=== PATIENT | male | born 1960 | race Caucasian/White ===

== ENCOUNTER 2020-03-19 00:32 | Outpatient (CLI) | payer BC, SELFPAY ==
[2020-03-19 16:40] LABS: SARS-CoV-2 RNA PCR Negative
== END 2020-03-19 00:33 | disposition home or self-care (01) ==
LOC: ANHCOVIDDT 00:32
PROVIDERS: PCP Emergency Medicine; Visit Provider Orthopaedic Surgery
DX: Z01.812 Encounter for preprocedural laboratory examination (principal); Z20.828 Contact with and (suspected) exposure to other viral communicable diseases
CPT/HCPCS: 87635; C9803; U0003

== ENCOUNTER 2020-03-21 17:53 | Inpatient (IN) | payer BC, SELFPAY ==
[2020-02-07 11:05] VITALS: BMI 33.9
--- NOTE | 2020-02-13 11:47 | P.HP_ITS ---
H&P: HPI History of Present Illness Date/Time: 02/13/20 11:47 Chief complaint: Right Shouldler Rotator Cuff Tear Narrative: Ritchie Lyons is a 59 year old male who presents with an ongoing history of right shoulder pain. Patient has pain with overhead type motion can not do any heavy repetitive pushing or pulling or lift anything heavy. Patient has aching and pain limits his daily activities this pain radiates into his upper arm worse with activity somewhat relieved by rest. He has dealt with this pain for several months that is not improving with time. He had cortisone therapy and anti-inflammatories as symptoms continue. An MRI scan was performed that shows a partial tear of the supraspinatus tendon. The bicipital and labral complexes are intact. There is a small subacromial, subdeltoid fluid collection. There are hypertrophic degenerative changes of the AC joint which may cause impingement type symptoms. Remainder of the rotator cuff tendons appeared to be well preserved with no retraction. At this point the patient has failed conservative measures as discussed further treatment options in detail with Dr. eG he would like to proceed with surgical intervention. Review of Systems Review of Systems: All systems reviewed & are unremarkable except as noted in HPI and below PMFSH Social History Social History Smoking status: Never smoker Spiritual care concerns: No Meds Home Medications and Allergies Home Medications Medication Instructions Recorded Confirmed Type aspirin [Aspirin Low Dose] 81 mg PO DAILY 02/07/20 02/07/20 History esomeprazole magnesium [Nexium] 20 mg PO EVERY OTHER DAY 02/07/20 02/07/20 History omega 4-kiu-bjt-fish oil [[place]-3] 1 cap PO DAILY 02/07/20 02/07/20 History Allergies Allergy/AdvReac Type Severity Reaction Status Date / Time No Known Allergies Allergy Mild Unverified 02/07/20 11:06 Exam Narrative: Exam Narrative: The patient is well-developed well-nourished male in no acute distress. He is alert and oriented x3. Normal mood and affect. HEENT exam within normal limits. Heart regular rate rhythm. Lungs clear auscultation. Abdomen benign. Extremities showed the patient's right shoulder to be painful with manipulation range of motion. He has pain with overhead type motion with a positive impingement sign. He has full active and passive motion pain with extremes of motion. He has painful giving way with rotator cuff strength testing, rotator cuff strength testing does reproduce his symptoms. Patient has full painless neck motion shoulder joint is otherwise stable. Neurovascular is intact. Skin is intact. Central nervous system exam within normal limits. MRI scan is as above. Assessment and Plan Additional Plan By MRI and exam the patient is noted have impingement with rotator cuff tendinitis AC joint arthrosis and partial-thickness tear of the supraspinatus tendon right shoulder. The patient has discussed risks benefits limitations and alternatives of surgery in great detail with Dr. Ge he is now to proceed with a right shoulder arthroscopy acromioplasty open distal clavicle excision and possible debridement of the rotator cuff tendon versus repair, proceed as indicated. The patient is scheduled undergo surgery 02/22/2028 [facility] with Dr. Ge. The patient voiced understanding and agrees with the above plan.
--- NOTE | 2020-03-13 12:22 | PC.NURSE ---
PT STATES NO CHANGE IN HEALTH SINCE PREOP INTERVIEW CONDUCTED 02/07/20. MEDS/HX REVIEWED. UPDATED PREOP INSTRUCTIONS REVIEWED.
--- NOTE | 2020-03-16 14:16 | PM.IMHP ---
H&P: HPI History of Present Illness Date/Time: 03/16/20 14:16 Chief complaint: Right Shouldler Rotator Cuff Tear Narrative: Ritchie Lyons is a 59 year old male Who presents with right shoulder pain chronic in nature. Patient has pain with overhead type motion worse with activity somewhat relieved by rest. The pain radiates from her shoulder into his upper arm, the patient reports painful giving way with repetitive or heavy activity. The patient states it has been a slow gradual onset and got to the point where it limits his daily activities. The patient was evaluated and treated with cortisone therapy and anti-inflammatories without significant relief. An MRI scan was done that shows a partial tear of the supraspinatus tendon near the insertion suggesting an interstitial tear, this extends to the articular surface no retraction is noted the rest the rotator cuff tendons are well preserved. The bicipital tendon and labral complex is also well preserved. There is mild hypertrophic degenerative changes seen at the acromioclavicular joint with impingement and a small subacromial subdeltoid fluid collection is noted. At this point the patient is discussed treatment options in detail with Dr. Ge he has failed conservative measures he would like to proceed with surgical intervention. Review of Systems Review of Systems: All systems reviewed & are unremarkable except as noted in HPI and below PMFSH Social History Social History Smoking status: Never smoker Spiritual care concerns: No Meds Home Medications and Allergies Home Medications Medication Instructions Recorded Confirmed Type aspirin [Aspirin Low Dose] 81 mg PO DAILY 02/07/20 03/13/20 History esomeprazole magnesium [Nexium] 20 mg PO EVERY OTHER DAY 02/07/20 03/13/20 History omega 4-jdm-dac-fish oil [[place]-3] 1 cap PO DAILY 02/07/20 03/13/20 History Allergies Allergy/AdvReac Type Severity Reaction Status Date / Time No Known Allergies Allergy Mild Unverified 02/07/20 11:06 Exam Narrative: Exam Narrative: The patient is a well-developed well-nourished male no acute distress he is alert and oriented x3. Normal mood and affect. HEENT exam within normal limits heart regular rate rhythm lungs clear auscultation abdomen benign bowel sounds positive four quads. Extremities showed the patient's right shoulder to be painful with manipulation range of motion. He has pain with overhead type motion with a positive impingement sign rotator cuff strength testing did reproduce his symptoms as well. He has painful giving way with rotator cuff strength testing weakness with external rotation in abduction is noted. He has full passive and active motion. He has full painless neck motion shoulder joint is otherwise stable. Neurovascular is intact. Central nervous system exam within normal limits. Assessment and Plan Additional Plan By MRI exam the patient is noted to have impingement with rotator cuff tendinitis AC joint arthrosis and partial-thickness tear of the rotator cuff tendon. This is all in the right shoulder. The patient has discussed risks benefits limitations and alternatives of surgery in great detail with Dr. Ge he has noted proceed with a right shoulder arthroscopy acromioplasty open distal clavicle excision with rotator cuff tendon debridement versus repair proceed as indicated patient is scheduled undergo surgery 03/21/[address] [facility] [address] Ge. The patient voiced understanding and agrees with above plan.
--- NOTE | 2020-03-20 17:46 | P.PNAN_ITS ---
Larisa - Rebeka Pre Procedure Procedure: Operation Date: 03/21/20 07:30 Proposed Procedures p Right Shoulder Arthroscopy, Acromioplasty, Open Distal Clavicle Excision, Open Rotator Cuff Repair, Proceed As Indicated - Ravi Ge MD Date/Time: 03/20/20 17:46 Pre Op Diagnosis: Right Shouldler Rotator Cuff Tear Patient Data Age: 59 Gender: M Height: 6 ft Weight: 113.4 kg Allergies Allergy/AdvReac Type Severity Reaction Status Date / Time No Known Allergies Allergy Mild Unverified 02/07/20 11:06 Home Medications Medication Instructions Recorded Confirmed Type aspirin [Aspirin Low Dose] 81 mg PO DAILY 02/07/20 03/13/20 History esomeprazole magnesium [Nexium] 20 mg PO EVERY OTHER DAY 02/07/20 03/13/20 His tory omega 7-lyu-hga-fish oil [[place]-3] 1 cap PO DAILY 02/07/20 03/13/20 History Patient hx anesthesia problems: none Family hx anesthesia problems: none PMFSH Past Medical History Medical History (Updated 03/20/20 @ 17:48 by Xavi Thomson CRNA) GERD (gastroesophageal reflux disease) Obesity Pre-hypertension Surgical History Surgical History S/P excision of lipoma S/P lumbar fusion Social History Social History Smoking status: Never smoker Spiritual care concerns: No Exam Day of Procedure 03/20/20 17:46
[2020-03-21] VITALS (29 sets, daily range): BP systolic 99–164; BP diastolic 68–102; PULSE 94–124; RESP 16–28; TEMP 36.2–37.1; O2SAT 88–95
--- NOTE | ~2020-03-21 | CT_ITS ---
EXAMINATION: CTA chest PE protocol DATE: 03/23/2020 11:42 INDICATION: Postoperative hypoxia and tachycardia. TECHNIQUE: Computed tomography (CT) pulmonary angiogram of the chest was performed with 100 mL Omnipa que-350 intravenous contrast. Additional 3D reconstructions utilizing coronal maximum intensity proje ction (MIP) were performed. Automated exposure control and iterative reconstruction technique were em ployed. The dose-length product was 1014.63 mGy-cm. COMPARISON: None FINDINGS: Minimal respiratory motion. Adequate but suboptimal contrast opacification of the pulmonary arteries along with mild streak artifact from dense contrast in the superior vena cava and right atrium which mildly decreases sensitivity for pulmonary embolism. No pulmonary embolism identified. Atelectasis al marlen the medial right lower lobe and at the posterior segment of the right upper lobe. No pneumonia, p ulmonary edema or pleural effusion. 4-5 mm subpleural nodule at the lingula. Heart size is normal. No pericardial effusion. Thoracic aorta is normal in caliber with no dissection. No pathologically enla rged thoracic lymphadenopathy. Visualized upper abdomen is unremarkable. Likely physiologic chronic a ppearing mild anterior wedging at T12. IMPRESSION: 1. No evident pulmonary embolism. Sensitivity mildly decreased by adequate but suboptimal contrast op acification of the pulmonary arteries. 2. Atelectasis in the right upper and left lower lobes. 3. Indeterminate 4-5 mm nodule at the lingula. If the patient is low risk for lung cancer, no follow- up is needed. If the patient is high risk (i.e., history of smoking or asbestos or significant radiat ion exposure), optional follow-up low-dose noncontrast chest CT could be considered at 12 months. Reviewed, dictated and finalized at location A. IMPRESSION: 1. No evident pulmonary embolism. Sensitivity mildly decreased by adequate but suboptimal contrast opacification of the pulmonary arteries. 2. Atelectasis in the right upper and left lower lobes. 3. Indeterminate 4-5 mm nodule at the lingula. If the patient is low risk for l usman cancer, no follow-up is needed. If the patient is high risk (i.e., history of smoking or asbestos or significant radiation exposure), optional follow-up l ow-dose noncontrast chest CT could be considered at 12 months.
--- NOTE | ~2020-03-21 | XR_ITS ---
EXAMINATION: XR chest 1V portable EXAM DATE: 03/21/2020 12:02 INDICATION: Decreased breath sounds. TECHNIQUE: Portable AP frontal chest x-ray was obtained. There is no prior study for comparison. FINDINGS: There is linear left basilar atelectasis. Suspect larger amount of right infrahilar airspac e disease, could be atelectasis, pneumonia, or less likely chronic process. No pneumothorax or pleura l effusion. Cardiomediastinal silhouette is normal. There are mild bony degenerative changes. IMPRESSION: 1. Probable right infrahilar subsegmental atelectasis, pneumonia or less likely chronic process. 2. Left basilar linear atelectasis. Reviewed, dictated and finalized at location A. IMPRESSION: 1. Probable right infrahilar subsegmental atelectasis, pneumonia or less likel y chronic process. 2. Left basilar linear atelectasis.
[2020-03-21] MEDS: LACTATED RINGERS 1,000 ML 30 ML IV CONT ×2 (07:08→09:43)
[2020-03-21] MEDS: ACETAMINOPHEN 500 MG TABLET 1000 MG PO (07:08)
[2020-03-21] MEDS: KETOROLAC 15 MG/ML VIAL (*BKC) IV PUSH (07:09)
--- NOTE | 2020-03-21 07:10 | WPDHPUPDATE1 ---
History and Physical Update Update Date/Time: 03/21/20 07:10 History and Physical has been reviewed, including an updated exam of the patient. There are NO changes in the patient's condition. Risks, benefits, and alternatives have been discussed and questions answered. Patient agrees to proceed with procedure.
[2020-03-21] MEDS: ceFAZolin 2 GM/D5W 50 ML 2 GM/50 ML BAG IVPB (07:31)
--- NOTE | 2020-03-21 07:32 | WPDANESPNB ---
Anes - Peripheral Nerve Block Date/Time: 03/21/20 07:32 I have discussed with the patient/family/POA the placement of a peripheral nerve block for post-operative pain management, including associated risks, benefits, complications, and side effects. Alternative methods of post-operative analgesia were detailed. Questions were solicited and answers provided to the satisfaction of the patient/family/POA. Time-Out: A pre-procedural Time-Out was completed immediately before starting the procedure and confirmed: Patient Identification, Site, Procedure, Patient Position and the Availability of Requisite Equipment. Clinical Indications: Acute post-operative pain management requested by the operative surgeon. Nerve Block Insertion Note Anes-nerve block: interscalene right Patient position: supine Skin prep: chlorhexidine Needle: 22 gauge, stimulating, insulated echogenic needle. Needle length: 50 mm Technique: ultrasound Injectate: bupivacaine 0.5% with epi 5 mcg/ml (30cc) Observations: tolerated well Complications: none Procedure start time:: 724 Procedure end time:: 727
--- NOTE | 2020-03-21 07:55 | WPDANESEFPP ---
Anes - Eval Final PreProcedure Day of Procedure 03/21/20 07:55 Patient weight: obese Heart: regular rate and rhythm Lungs: clear to auscultation and normal air movement Airway: Mallampati scale class III Neurological: alert and oriented Last oral intake: >/= 8 hours ASA classification: III Emergent: no Anesthetic plan: proceed Anesthesia type and monitoring: general ETT and standard monitoring Informed Consent: The patient's anesthetic plan and its attendant risks and benefits were discussed with the patient/family/POA. Questions were solicited and answers provided to the satisfaction of the patient/family/POA.
[2020-03-21] MEDS: LIDO 1%/EPINEPHRINE 1:100,000 20 ML VIAL INFILTRATE (08:27)
--- NOTE | 2020-03-21 08:57 | PM.PROC ---
Procedure Note - Detailed Date of procedure: 03/21/20 Pre-op diagnosis: Right Shouldler Rotator Cuff Tear Post-op diagnosis: same Procedure performed: [side] carpal tunnel release Description of procedure: After sterile prep and drape, I injected the area of intended incision with 10ml of 1% lidocaine. A longitudinal incision was made in line with the ulnar boarder of the third finger. Disection carried down to the fascia, the fascia split and the carpal ligament identified. The carpal ligament was released and the flexor retinaculum was released as well. The nerve was noted to be red purple in color and in continuity. The wound was irrigated, hemostatis was obtained and closed with 3-0 prolene. Anesthesia: MAC Surgeon: Ravi Ge MD Estimated blood loss (mL): 5 Drains: No Packing: No Pathology: none sent Complications: No immediate complications Condition: stable Disposition: same day
--- NOTE | 2020-03-21 08:58 | P.OP_ITS ---
Procedure Note - Detailed Date of procedure: 03/21/20 Pre-op diagnosis: Right Shouldler Rotator Cuff Tear Post-op diagnosis: same Anesthesia: GETA Surgeon: Ravi Ge MD Patient brought to OR #7. Anesthetic given. Placed in beach chair position. Standard portals posterior and laterally with an anterior portal used. Diagnostic arthroscopy performed. Rotator cuff tear seen. Acromioplasty performed. Incision opened and carried to the A/C joint. 3mm distal clavicle removed. deltoid split distally for 2 cm. Acromioplasty rasped. Rotator cuff tear found (nickel sized) and repaired with multiple #2 ethibond sutures. Deltoid repaired to itself, acromion and trapezius. Wound closed with 2-0 viryl and savana. Procedure was very difficult because of the patient's size. Marine Equipment Design Engineer: Jason Rousseau Estimated blood loss (mL): 50 Drains: No Packing: No Pathology: none sent Complications: No immediate complications Condition: stable Disposition: PACU
--- NOTE | 2020-03-21 10:08 | SUR.PHASEI ---
0943; PT ARRIVED INTO PACU PER STRETCHER. 02 10L MASK. HOB ELEVATED 30 DEGREES. FACE HANNAH IN COLOR. RESP EVEN UNLABORED. SAO2 89-92%,
--- NOTE | 2020-03-21 10:18 | SUR.PHASEI ---
1008; PT DROWSY, SAO2 85-90% ON O2 10L MASK. RESP EVEN UNLABORED. SLIGHT DIMINISHED BREATH SOUNDS TO RLL. CLEAR BILAT. DR LIVE NOTIFIED. WHEN PT MORE AWAKE, START INCENTIVE SPIROMETER.
--- NOTE | 2020-03-21 10:38 | SUR.PHASEI ---
SPOKE TO DR QUIGLEY. MAY USE SHOULDER SCOPE CANNED TEXT FOR DISCHARGE INSTRUCTIONS.
--- NOTE | 2020-03-21 10:54 | SUR.PHASEI ---
1050; PT MORE AWAKE NOW. WANTING TO SIT UPRIGHT. RESP EVEN UNLABORED. P,W,D. FACE NO LONGER HANNAH IN COLOR. DENIES PAIN OR NAUSEA. PT GIVEN ICE CHIPS SPARINGLY
--- NOTE | 2020-03-21 11:40 | SUR.PHASEI ---
1130; PT AWAKE AND ALERT. EATING A FEW ICE CHIPS. REMAINS UPRIGHT. DENIES PAIN OR SOB. RESP EVEN UNLABORED. P,W,D. SAO2 RANGES 86%-90% ON 10L MASK. PT KEEPS STATING I FEEL FINE
--- NOTE | 2020-03-21 11:56 | SUR.PHASEI ---
1150; CALLED DR LIVE. NOTIFIED OF CONTINUING LOW SATS. AND I.S. OF 700-900. 1152; DR LIVE AT BEDSIDE ASSESSING PT. STAT CXR ORDERED.
--- NOTE | 2020-03-21 12:16 | SUR.PHASEI ---
1210; PT AWAKE AND ALERT. STATES I'M FEELING GOOD. READY TO GO HOME SAO2 REMAINS LOW. PT WANTING TO SIT UP IN CHAIR. RECLINER BROUGHT INTO PACU. PT UP TO RECLINER. GAIT STEADY. TRANSFERRED SELF WITH O2 ON.
--- NOTE | 2020-03-21 12:26 | SUR.PHASEI ---
PT AWAKE AND ALERT. TALKATIVE. REMAINS ON O2 10L MASK. SAO2 DECREASED TO 8L FOR TRIAL. PT REMAINS IN RECLINER. DRINKING WHITE SODA
--- NOTE | 2020-03-21 12:42 | SUR.PHASEI ---
SPOKE TO DR LIVE. HE IS GOING TO CALL DR QUIGLEY AND GIVE AN UPDATE
--- NOTE | 2020-03-21 12:50 | SUR.PHASEI ---
1247; DR LIVE AT BEDSIDE SPEAKING TO PT. HE SAYS DR QUIGLEY WANTS PT ADMITTED UNDER HOSPITALIST. JAMESON KELLY RN NOTIFIED TO START PROCESS.
--- NOTE | 2020-03-21 13:03 | SUR.PHASEI ---
JAMESON CEDEÑO SPOKE TO DR QUIGLEY AND DR GREY. PT TO BE ADMITTED
--- NOTE | 2020-03-21 13:07 | SUR.PHASEI ---
TRIAL ON O2 6L SIMPLE MASK
--- NOTE | 2020-03-21 13:32 | SUR.PHASEI ---
REPORT GIVEN TO STEVE CEDEÑO
--- NOTE | 2020-03-21 14:19 | SUR.PHASEI ---
CARE RESUMED OF PT
--- NOTE | 2020-03-21 14:59 | SUR.PHASEI ---
3291; SPOKE TO NURSING TRACK BROOM OPERATOR RAJ CEDEÑO. NEEDING ORDERS. DR GREY DID NOT CALL BACK. SHE SUGGESTED CALLING HOSPITALIST ANG LEACH. CALLED. NO ANSWER.
--- NOTE | 2020-03-21 15:43 | SUR.PHASEI ---
1515; CALLED HANY [facility] NP, SHE STATED DR GREY WAS NOT ACCEPTING THIS PATIENT DUE TO HYPOXIA. 1530; SPOKE TO JAMESON CEDEÑO, BETZY SURGERY DIRECTOR, RAJ CEDEÑOCOMPUTER AIDE. 1535; JAMESON CEDEÑO SPOKE TO DR QUIGLEY REGARDING ADMISSION ORDERS. HE SAID THATS FINE DO WHATEVER YOU WANT . 1540; STAT ABG ORDERED PER HOSPITALIST REQUEST. 1545; PT UPDATED.
--- NOTE | 2020-03-21 15:56 | SUR.PHASEI ---
PT ASKING WHY HIS OXYGEN LEVEL IS LOW. INFORMED PT HE WILL NEED TO ASK THE PHYSICIAN ON THE FLOOR.
[2020-03-21 15:59] LABS: Alveolar/Arterial O2 Gradient 209.1 mmHg; Device SIMPLE MASK; Fractional Inspired Oxygen 44 %; HCO3 ABG 22.1 mEq/l (22.0-26.0); Modified Allen's Test Pass; Oxygen Saturation ABG 89.9 % (95.0-100.0); Oxyhemoglobin 89.1 % THb (90.0-100.0); PCO2 ABG 39.8 mmHg (35.0-45.0); PO2 ABG 59.3 mmHg (80.0-100.0); PO2 FiO2 Ratio Arterial Blood 1.35 %; Site Drawn RIGHT RADIAL; pH ABG 7.362 (7.350-7.450)
--- NOTE | 2020-03-21 16:06 | SUR.PHASEI ---
ABG'S RESULTED. O2 INCREASED TO 7L SIMPLE MASK. REPORT FAXED TO IMU
--- NOTE | 2020-03-21 16:43 | SUR.PHASEI ---
1635; REPORT GIVEN TO IMU RN. PT AWAKE AND ALERT. RESP EVEN UNLABORED. O2 7L MASK. 1643; TRANSFERRED PER RECLINER WITH O2 AND BELONGINGS TO ROOM 231 WITH RN
--- NOTE | 2020-03-21 17:11 | PC.NURSE ---
This patient, Ritchie Lyons, was admitted to -. Patient/family oriented to hospital policies and general routines including ID bracelet, bed and alarms, visiting hours, pain management, procedures, bathroom and other care routines, personal items, smoking policy, room service/diet, and visiting hours. Valuables list has been completed. Information on how to activate the Rapid Response Team has been discussed. Patient/Family are encouraged to report perceived risks to care and to ask questions if they do not understand what they are told or what they should do.
--- NOTE | 2020-03-21 19:26 | PM.IMCN ---
Assessment and Plan Assessment and plan (1) Hypoxia: Code(s): R09.02 - Hypoxemia Status: Acute Assessment and Plan: the patient believes he may have sleep apnea. It could just be a reaction to the anesthesia. Patient's O2 saturations dropped below 90% without oxygen. The patient's oxygen level was 88 in the room when he was up walking around. We had a but the oxygen back on to 7 L. Will try to wean him off when feasible. I did encourage him to use incentive spirometer as well. He has no fever chills or cough. So did not consider testing him for COVID as he has probably been tested for COVID preoperatively. (2) S/P right rotator cuff repair: Code(s): Z98.890 - Other specified postprocedural states Status: Acute Assessment and Plan: Postop care per Dr. Ge. The patient has good color circulation sensation motion to right shoulder. A dressing is dry and intact. Patient has not in a sling. Pain medication per Dr. Ge. All postop care per Dr. Ge. DVT prophylaxis per Dr. Ge. (3) BPH (benign prostatic hyperplasia): Code(s): N40.0 - Benign prostatic hyperplasia without lower urinary tract symptoms Status: Chronic Assessment and Plan: Patient had to be straight cath for urinary retention his bladder is can read as 571 mL and has Flomax was restarted. (4) Apnea, sleep: Code(s): G47.30 - Sleep apnea, unspecified Status: Acute Assessment and Plan: Patient stated that he would need to get a sleep study done outpatient but for diet will keep the oxygen on and wean him off and possibly he could go home in the a.m.. (5) GERD (gastroesophageal reflux disease): Code(s): K21.9 - Gastro-esophageal reflux disease without esophagitis Status: Chronic Assessment and Plan: Continue with his Nexium. (6) Obesity: Code(s): E66.9 - Obesity, unspecified Status: Acute Assessment and Plan: Patient stated that he would try healthy lifestyle. And decrease the fat intake. HPI Data of Consult Consult date: 03/21/20 Requesting Physician: Ravi Ge MD Primary Care Provider: Faustino Ray MD Consult Narrative Narrative: Ritchie Lyons is a 59 year old male Who has a history of having a left rotator cuff repair in the past and his elbows x3. The patient takes testosterone on a regular basis. The patient had a right shoulder rotator cuff tear that was repaired by Dr. Ge today. Please see the operative report. It was reported that the patient was hypoxic in PACU patient was placed on oxygen at 6 L per nasal cannula. The patient stated that he does believe strongly that he has sleep apnea but does not wear CPAP machine. patient also has a history of having BPH and is having difficulty urinating. The hospitalist group was consulted due to the patient's hypoxia. Patient's pH was 7.3621 is ABGs PO2 was 59.3 and his oxygen was turned up to 7 L per nasal cannula. While I was in the room the patient took office oxygen any desatted down to 88%. Chest x-ray was read as probable right hilar infrahilar subsegmental atelectasis pneumonia least likely, chronic left basilar little linear atelectasis. A bladder scan was performed and the patient had 571 mL in his bladder and I have asked the staff to straight cath him. He does have a history of having BPH and has not taken his Flomax today. I thank Dr. Ge for the opportunity to consult on this gentleman. The patient stated that he does some heavy lifting and that is why he has been having problems with his upper arms. Date of consult 03/21/2020 Review of Systems Review of Systems: All systems reviewed & are unremarkable except as noted in HPI and below Constitutional: Constitutional: Reports as per HPI and Reports no additional constitutional complaints Eyes: Eyes: Reports as per HPI and Reports no additional eye complaints ENT: Reports syst
[2020-03-21] MEDS: WATER FOR IRRIGATION, STERILE 1,000 ML BOTTLE 1000 ML (20:56)
[2020-03-21] MEDS: TAMSULOSIN HCL 0.4 MG CAPSULE PO (21:34)
[2020-03-21] MEDS: LORazepam (*CRX) 0.5 MG TABLET PO (22:34)
[2020-03-21] MEDS: HYDROcodone/acetaminophen (*CRX) 7.5-325 MG TABLET 1 TAB PO (22:34)
[2020-03-22] VITALS (12 sets, daily range): BP systolic 146–171; BP diastolic 70–99; PULSE 85–120; RESP 16–22; TEMP 35.8–36.9; O2SAT 94–98
[2020-03-22 05:11] LABS: Basophils Absolute Auto 0.1 K/mm3 (0.0-0.1); Basophils Percent Auto 0.3 % (0.2-1.2); Hematocrit 60.7 % (42.0-52.0); Immature Granulocyte Absolute 0.15 K/mm3 (0.00-0.031); Immature Granulocyte Percent A 0.7 % (0-0.5); Lymphocytes Absolute Auto 0.67 K/mm3 (0.9-3.2); Lymphocytes Percent Auto 3.1 % (18.3-44.2); Mean Corpuscular HGB Conc 31.3 g/dl (32-36); Mean Corpuscular Hemoglobin 26.8 pg (26-34); Mean Corpuscular Volume 85.5 fl (80-100); Mean Platelet Volume 9.4 fl (7.4-10.4); Monocytes Absolute Auto 2.3 K/mm3 (0.1-0.6); Monocytes Percent Auto 10.7 % (2.6-8.5); Neutrophils Absolute Auto 18.5 K/mm3 (1.3-6.7); Neutrophils Percent Auto 85.2 % (45.5-73.1); Platelet Count Result 248 k/mm3 (150-375); Red Cell Distribution Width 17.4 % (11.5-14.5); White Blood Count 21.8 K/mm3 (4.5-10.0)
[2020-03-22] MEDS: HYDROcodone/acetaminophen (*CRX) 7.5-325 MG TABLET 1 TAB PO ×5 (05:23→20:44)
[2020-03-22 05:32] LABS: Anion Gap 9 mmol/L (8-16); Blood Urea Nitrogen 18 mg/dL (9-20); Calcium 8.9 mg/dL (8.4-10.2); Carbon Dioxide 29 mmol/L (22-30); Chloride 97 mmol/L (98-107); Estimated CRCL calculation 75 ml/min; Estimated Glomerular Filt Rate 57; Glucose 117 mg/dL (75-110); Magnesium 2.1 mg/dL (1.6-2.3); Potassium 4.7 mmol/L (3.4-5.0); Sodium 135 mmol/L (137-145)
[2020-03-22] MEDS: PANTOPRAZOLE 40 MG TABLET PO (09:26)
[2020-03-22] MEDS: OMEGA 3 POLYUNSAT FATTY ACIDS 1 GM CAP PO (09:26)
[2020-03-22] MEDS: LORazepam (*CRX) 0.5 MG TABLET PO (09:27)
--- NOTE | 2020-03-22 11:05 | P.PNAN_ITS ---
Anes - Prog Note Post-Op Date/Time: 03/22/20 11:05 Cardiovascular status: normal Respiratory status: normal Airway patency: baseline Mental status: baseline Post-Op hydration status: normal Vital Signs: Last Vital Signs Temp 35.8 C L 03/22/20 08:00 Pulse 93 03/22/20 10:00 Resp 20 03/22/20 08:00 BP 156/77 H 03/22/20 08:00 Pulse Ox 95 03/22/20 08:00 Pain Score (VAS): 6 I/O: Intake & Output 03/21/20 03/22/20 03/22/20 23:59 07:59 15:59 Intake Total 550 100 Output Total 1875 550 Balance -1875 0 100 Laboratory Tests 03/22/20 04:58 03/22/20 04:58 03/21/20 03/22/20 03/22/20 15:51 04:58 04:58 WBC 21.8 H RBC 7.10 H Hgb 19.0 H Hct 60.7 H MCV 85.5 MCH 26.8 MCHC 31.3 L RDW 17.4 H Plt Count 248 MPV 9.4 Immature Gran % (Auto) 0.7 H Neut % (Auto) 85.2 H Lymph % (Auto) 3.[address] [place] % (Auto) 10.7 H Eos % (Auto) 0.0 Baso % (Auto) 0.3 Lymph # (Auto) 0.[address] [place] # (Auto) 2.3 H Eos # (Auto) 0.0 Baso # (Auto) 0.1 Abs Immat Gran (auto) 0.15 H Absolute Neuts (auto) 18.5 H Absolute Nucleated RBC 0.0 Nucleated RBC % 0.0 Puncture Site Right radial ABG pH 7.362 ABG pCO2 39.8 ABG pO2 59.3 L ABG PO2/FiO2 Ratio 1.35 ABG HCO3 22.1 ABG O2 Saturation 89.9 L ABG O2 Content 25.0 H ABG Base Excess -3.0 A-a Gradient 209.1 Oxyhemoglobin 89.1 L Total Hemoglobin 20.0 H O2 Delivery Device Simple mask O2 Liters/Min 6.0 FiO2 44 Sodium 135 L Potassium 4.7 Chloride 97 L Carbon Dioxide 29 Anion Gap 9 BUN 18 Creatinine 1.30 Estim Creat Clear Calc 75 Estimated GFR 57 L Glucose 117 H Calcium 8.9 Magnesium 2.1 Post-procedural complaints: none Patient Feedback: Patient satisfied with anesthetic care.
[2020-03-22] MEDS: DOCUSATE SODIUM 100 MG CAPSULE PO ×2 (11:44→22:21)
--- NOTE | 2020-03-22 13:59 | PM.IMPN ---
Progress Note: A&P Assessment and Plan (1) Hypoxia: Code(s): R09.02 - Hypoxemia Status: Acute Assessment and Plan: Pt is on 6 liters of oxygen. I rodney start IV abx and BT. pt will benefit from sleep studies on dischrage. Cxr shows atelectasis. post op day 1 (2) S/P right rotator cuff repair: Code(s): Z98.890 - Other specified postprocedural states Status: Acute Assessment and Plan: Postop care per Dr. Ge. Pain control and DVT prop (3) BPH (benign prostatic hyperplasia): Code(s): N40.0 - Benign prostatic hyperplasia without lower urinary tract symptoms Status: Chronic Assessment and Plan: Patient had to be straight cath for urinary retention Flomax was started. pt has history of bph. (4) Apnea, sleep: Code(s): G47.30 - Sleep apnea, unspecified Status: Acute Assessment and Plan: Patient stated that he would need to get a sleep study done outpatient (5) GERD (gastroesophageal reflux disease): Code(s): K21.9 - Gastro-esophageal reflux disease without esophagitis Status: Chronic Assessment and Plan: Continue with his Nexium. (6) Obesity: Code(s): E66.9 - Obesity, unspecified Status: Acute Assessment and Plan: Adviced health lifestyle for weight loss Subjective Date/time seen: 03/22/20 13:59 Interval history: The patient had a right shoulder rotator cuff tear that was repaired by Dr. Ge yesterday. Pt is still SOB needing 6 liters of oxygen. CXR from yesterday shows atelectasis. Pt looks like he may have sleep apnea also. Denies smoking. Review of Systems Review of Systems: All systems reviewed & are unremarkable except as noted in HPI and below Cardiovascular: Cardiovascular: Denies no additional cardiovascular complaints Respiratory: Respiratory: Reports chest congestion, Denies cough, Reports dyspnea and Denies wheezing Gastrointestinal: Gastrointestinal: Denies no additional gastrointestinal complaints Genitourinary: Genitourinary: Reports urinary hesitancy Comments: history of BPH Musculoskeletal: Musculoskeletal: Reports no additional musculoskeletal complaints Exam Const: General: cooperative, healthy appearing, comfortable, no acute distress, well developed, alert and awake Nutritional Appearance: average body habitus and well nourished Orientation/consciousness: oriented to person, oriented to place, oriented to time and patient oriented x3 Limitations: no limitations Resp: Auscultation: rhonchi and diminished lung sounds Other: BL bases Cardio: Palpation: normal PMI Rate: regular rate Rhythm: regular rhythm Heart sounds: S1 normal heart sound present and S2 normal heart sound present Peripheral pulses: Peripheral pulses 2+ throughout GI: Inspection: normal to inspection Auscultation: normal bowel sounds Rectal Exam: deferred : General: Yes no CVA tenderness Skin: General skin exam: normal color Lesions: no lesions Rashes: no rashes Trauma: no lacerations or abrasions Wounds: no wounds Hair: normal Nails: normal Neuro: General: oriented to person, oriented to place, oriented to time and patient oriented x3 Cranial nerves: Yes Equal, round and reactive pupils present and Yes Normal hearing present Cognition (Neuro): normal cognition Speech: normal speech Gait exam (Neuro): Normal gait present Motor exam (neuro): 5/5 motor strength present throughout Sensory Exam: normal sensation Extrem: Other: R shoulder in sling sp rotator cuff surgery Psych: Appearance: grossly normal Mental Status: mental status grossly normal Speech and movement: Normal speech and movement present Affect: normal affect Attitude: cooperative Thought process: Normal thought process present Insight: Good insight present (Psych) Judgement: Good judgement present (Psych) Objective Data Vital Signs Vital Signs: Vital Signs - 24 hr 03/21/20 14:20 03/21/20 14:50 03/21
[2020-03-22] MEDS: CYCLOBENZAPRINE HCL 10 MG TABLET PO ×2 (14:27→22:21)
--- NOTE | 2020-03-22 14:48 | PM.PNORT ---
Progress Note: A&P Additional Plan Patient is postop day 1 status post right shoulder surgery as described above. Pain medications have been adjusted for comfort. Continue medical management, continue to monitor in the IMU to treat atelectasis/possible pneumonia. When medically stable the patient may be discharged home per the ortho standpoint, will follow. Subjective Subjective Date/Time Seen: 03/22/20 14:48 Patient is postop day 1 status post right shoulder arthroscopy acromioplasty open distal clavicle excision rotator cuff debridement and repair. Patient was suffering from low oxygen saturation, patient is currently admitted to the IMU care unit on 7 L of oxygen, white count is noted to be elevated at 21.8. patient is having some postop pain issues so his medication was adjusted, Celebrex and Flexeril ordered to help with pain control, [place] 7.5 mg is now being given every 3 hr. We will avoid stronger doses of narcotics due to the patient's low O2 saturation status if possible. Exam Narrative: Exam Narrative: Vital signs stable, on 7 L of oxygen now with O2 sats in the low 90s. Afebrile neurovascular is intact wound dressing clean. In a shoulder sling now, having some postoperative pain pain medications have been adjusted. Objective Data Vital Signs Vital Signs: Vital Signs - 24 hr 03/21/20 14:50 03/21/20 15:20 03/21/20 15:50 Temperature Pulse Rate 103 H 101 H 105 H Respiratory Rate 22 H 26 H 18 Blood Pressure 145/90 H 146/94 H 146/91 H Pulse Oximetry 90 90 89 L 03/21/20 16:20 03/21/20 17:17 03/21/20 17:40 Temperature 36.3 C L 36.6 C Pulse Rate 108 H 115 H 120 H Respiratory Rate 24 H 22 H 24 H Blood Pressure 144/91 H 148/88 H 150/94 H Pulse Oximetry 90 93 92 03/21/20 18:00 03/21/20 20:00 03/21/20 20:51 Temperature 36.8 C Pulse Rate 124 H 108 H Respiratory Rate 20 Blood Pressure 151/91 H Pulse Oximetry 92 91 03/21/20 22:00 03/22/20 00:00 03/22/20 02:00 Temperature 36.6 C Pulse Rate 107 H 107 H 97 Respiratory Rate 22 H Blood Pressure 168/99 H Pulse Oximetry 95 09/17/20 03:51 03/22/20 06:00 03/22/20 08:00 Temperature 36.9 C 35.8 C L Pulse Rate 95 109 H 117 H Respiratory Rate 22 H 20 Blood Pressure 146/70 H 156/77 H Pulse Oximetry 94 95 03/22/20 10:00 03/22/20 12:00 03/22/20 14:00 Temperature 35.9 C L Pulse Rate 93 107 H 92 Respiratory Rate 16 Blood Pressure 151/86 H Pulse Oximetry 98 Intake/Output Intake/Output: Intake & Output 03/19/20 03/20/20 03/21/20 03/22/20 23:59 23:59 23:59 23:59 Intake Total 250 890 Output Total 6624 925 Balance -5905 -38 Meds/Results Medications: Active Medications Generic Name Dose Route Start Last Admin Trade Name Freq PRN Reason Stop Dose Admin Hydrocodone Bitart/Acetaminophen 1 tab 03/22/20 14:22 03/22/20 14:26 [place] 7.5-325 Mg PO 1 tab Q3HR PRN Administration Pain Rated 7-10 Albuterol 2.5 mg 03/22/20 14:09 Albuterol Sulf Neb 2.5mg/0.5ml INHALATION Q6HRT PRN Shortness Of Breath Azithromycin 500 mg 03/22/20 15:00 Zithromax Tablet PO DAILY DESIRE Celecoxib 200 mg 03/22/20 17:00 Celebrex PO BIDWM DESIRE Cyclobenzaprine HCl 10 mg 03/22/20 14:21 03/22/20 14:27 Flexeril PO 10 mg Q8H PRN Administration Muscle Spasm Docusate Sodium 100 mg 03/22/20 11:32 03/22/20 11:44 Colace Capsule PO 100 mg Q12HR DESIRE Administration Fish Oil 1 gm 03/22/20 09:00 03/22/20 09:26 Lovaza PO 04/21/20 09:01 1 gm DAILY DESIRE Administration Ceftriaxone Sodium/Dextrose 1 gm in 50 mls @ 100 mls/hr 03/22/20 14:10 Rocephin 1 Gm/D5w 50 Ml IVPB DAILY DESIRE Lorazepam 0.5 mg 03/21/20 22:11 03/22/20 09:27 Ativan Tablet PO 0.5 mg Q6H PRN Administration Anxiety Pantoprazole Sodium 40 mg 03/22/20 09:00 03/22/20 09:26 Protonix PO 04/21/20 09:01 40 mg DAILY DESIRE Administration Polyethylene Glycol 17 gm
[2020-03-22] MEDS: AZITHROMYCIN 250 MG TABLET 500 MG PO (15:10)
[2020-03-22] MEDS: ALBUTEROL SULFATE NEB 2.5 MG/0.5 ML INH INHALATION (15:30)
[2020-03-22] MEDS: CELECOXIB 200 MG CAPSULE PO (17:46)
--- NOTE | 2020-03-22 18:25 | PC.NURSE ---
This patient, Ritchie Lyons, was transferred to [facility] on 03/22/20 at 1825. Personal belongings sent with patient. Report given to GALA Gregory. Appropriate documentation sent with patient.
[2020-03-22] MEDS: TAMSULOSIN HCL 0.4 MG CAPSULE PO (20:45)
[2020-03-23] VITALS (7 sets, daily range): BP systolic 135–153; BP diastolic 75–97; PULSE 60–123; RESP 20; TEMP 36.5–36.9; O2SAT 93–100
[2020-03-23] MEDS: HYDROcodone/acetaminophen (*CRX) 7.5-325 MG TABLET 1 TAB PO ×2 (01:47→12:34)
[2020-03-23 06:52] LABS: Basophils Percent Auto 0.3 % (0.2-1.2); Eosinophils Absolute Auto 0.1 K/mm3 (0-0.3); Eosinophils Percent Auto 0.7 % (0-4.4); Hematocrit 57.3 % (42.0-52.0); Hemoglobin 17.8 g/dL (14.0-18.0); Immature Granulocyte Absolute 0.07 K/mm3 (0.00-0.031); Immature Granulocyte Percent A 0.5 % (0-0.5); Lymphocytes Percent Auto 9.3 % (18.3-44.2); Mean Corpuscular HGB Conc 31.1 g/dl (32-36); Mean Corpuscular Hemoglobin 27.1 pg (26-34); Mean Corpuscular Volume 87.2 fl (80-100); Mean Platelet Volume 9.9 fl (7.4-10.4); Monocytes Percent Auto 14.3 % (2.6-8.5); Neutrophils Absolute Auto 10.4 K/mm3 (1.3-6.7); Neutrophils Percent Auto 74.9 % (45.5-73.1); Platelet Count Result 227 k/mm3 (150-375); Red Blood Count 6.57 M/mm3 (4.6-6.20); Red Cell Distribution Width 17.2 % (11.5-14.5); White Blood Count 13.9 K/mm3 (4.5-10.0)
[2020-03-23 07:21] LABS: Anion Gap 4 mmol/L (8-16); Blood Urea Nitrogen 19 mg/dL (9-20); Calcium 8.2 mg/dL (8.4-10.2); Carbon Dioxide 34 mmol/L (22-30); Chloride 98 mmol/L (98-107); Estimated CRCL calculation 70 ml/min; Estimated Glomerular Filt Rate 52; Glucose 92 mg/dL (75-110); Potassium 4.6 mmol/L (3.4-5.0); Sodium 136 mmol/L (137-145)
[2020-03-23] MEDS: CELECOXIB 200 MG CAPSULE PO (08:13)
[2020-03-23] MEDS: DOCUSATE SODIUM 100 MG CAPSULE PO (08:14)
[2020-03-23] MEDS: OMEGA 3 POLYUNSAT FATTY ACIDS 1 GM CAP PO (08:14)
[2020-03-23] MEDS: PANTOPRAZOLE 40 MG TABLET PO (08:14)
[2020-03-23] MEDS: AZITHROMYCIN 250 MG TABLET 500 MG PO (08:14)
--- NOTE | 2020-03-23 11:30 | PM.PNORT ---
Progress Note: A&P Additional Plan Pt improving, stable, awaiting a chest CT to r/o PE, if clear and medical service clears pt, may DC home per ortho standpoint, will folllow up with Dr Ge as outpt, pt voices understanding and agrees with plan. Subjective Subjective Date/Time Seen: 03/23/20 11:30 Pt up in chair on room air, no complaints of SOB now. States hes a bit congested nasally. Reports no pain in operative shoulder at rest, otherwise looks good in NAD. No other complaints. Review of Systems Review of Systems: All systems reviewed & are unremarkable except as noted in HPI and below Exam Narrative: Exam Narrative: VSS afebrile NV intact wound dressing clean and dry calves benign WBC count and O2 sats improving Objective Data Vital Signs Vital Signs: Vital Signs - 24 hr 03/22/20 12:00 03/22/20 14:00 03/22/20 15:30 Temperature 35.9 C L Pulse Rate 107 H 92 111 H Respiratory Rate 16 Blood Pressure 151/86 H Pulse Oximetry 98 03/22/20 15:50 03/22/20 18:00 03/22/20 22:00 Temperature 36.9 C 36.6 C Pulse Rate 85 120 H 102 H Respiratory Rate 22 H 22 H Blood Pressure 171/89 H 162/89 H Pulse Oximetry 98 97 03/23/20 06:00 03/23/20 09:01 03/23/20 09:50 Temperature 36.5 C Pulse Rate 60 Respiratory Rate 20 Blood Pressure 135/89 Pulse Oximetry 100 96 95 03/23/20 10:35 03/23/20 11:23 Temperature Pulse Rate Respiratory Rate Blood Pressure Pulse Oximetry 95 93 Intake/Output Intake/Output: Intake & Output 03/20/20 03/21/20 03/22/20 03/23/20 23:59 23:59 23:59 23:59 Intake Total 250 1180 540 Output Total 1925 1400 Balance -1675 -220 540 Meds/Results Medications: Active Medications Generic Name Dose Route Start Last Admin Trade Name Freq PRN Reason Stop Dose Admin Hydrocodone Bitart/Acetaminophen 1 tab 03/22/20 14:22 03/23/20 01:47 [place] 7.5-325 Mg PO 1 tab Q3HR PRN Administration Pain Rated 7-10 Albuterol 2.5 mg 03/22/20 14:09 03/22/20 15:30 Albuterol Sulf Neb 2.5mg/0.5ml INHALATION 2.5 mg Q6HRT PRN Administration Shortness Of Breath Azithromycin 500 mg 03/22/20 15:00 03/23/20 08:14 Zithromax Tablet PO 500 mg DAILY DESIRE Administration Celecoxib 200 mg 03/22/20 17:00 03/23/20 08:13 Celebrex PO 200 mg BIDWM DESIRE Administration Cyclobenzaprine HCl 10 mg 03/22/20 14:21 03/22/20 22:21 Flexeril PO 10 mg Q8H PRN Administration Muscle Spasm Docusate Sodium 100 mg 03/22/20 11:32 03/23/20 08:14 Colace Capsule PO 100 mg Q12HR DESIRE Administration Fish Oil 1 gm 03/22/20 09:00 03/23/20 08:14 Lovaza PO 04/21/20 09:01 1 gm DAILY DESIRE Administration Fluticasone Propionate 2 spray 03/23/20 11:00 Flonase 0.05% Nasal [place] NASAL QAM DESIRE Ceftriaxone Sodium/Dextrose 1 gm in 50 mls @ 100 mls/hr 03/22/20 14:10 03/23/20 08:13 Rocephin 1 Gm/D5w 50 Ml IVPB 100 mls/hr DAILY DESIRE Administration Lorazepam 0.5 mg 03/21/20 22:11 03/22/20 09:27 Ativan Tablet PO 0.5 mg Q6H PRN Administration Anxiety Pantoprazole Sodium 40 mg 03/22/20 09:00 03/23/20 08:14 Protonix PO 04/21/20 09:01 40 mg DAILY DESIRE Administration Polyethylene Glycol 17 gm 03/22/20 11:32 Miralax PO QAM PRN Constipation Tamsulosin HCl 0.4 mg 03/21/20 21:00 03/22/20 20:45 Flomax PO 0.4 mg HS DESIRE Administration Radiology Results: ITS Impressions Chest X-Ray 03/21/20 12:23 IMPRESSION: 1. Probable right infrahilar subsegmental atelectasis, pneumonia or less likely chronic process. 2. Left basilar linear atelectasis. Labs Labs: Laboratory Results - last 24 hr 03/23/20 03/23/20 06:08 06:08 WBC 13.9 H RBC 6.57 H Hgb 17.8 Hct 57.3 H MCV 87.2 MCH 27.1 MCHC 31.1 L RDW 17.2 H Plt Count 227 MPV 9.9 Immature Gran % (Auto) 0.5 Neut % (Auto) 74.9 H Lymph % (Auto) 9.3 L [place] % (Auto) 14.3 H Eos % (A
[2020-03-23] MEDS: FLUTICASONE PROPIONATE 0.05% NA SPR 16 GM BTL (*BKC) 2 SPRAY NASAL (12:35)
--- NOTE | 2020-03-23 15:24 | PM.IMPN ---
Progress Note: A&P Assessment and Plan (1) Hypoxia: Code(s): R09.02 - Hypoxemia Status: Acute Assessment and Plan: Acute hypoxia and trouble weaning oxygen postop from right rotator cuff repair. Chest x-ray taken after surgery showed probable right infrahilar subsegmental atelectasis versus pneumonia versus less likely chronic process. He was started on IV antibiotics, ceftriaxone and oral azithromycin. This morning patient was still on 5 L via and high-flow nasal cannula with an oxygen saturation 97%. Respiratory was able to wean him down to room air with an oxygen saturation between 95-93%. The patient denied any shortness of breath at rest or with exertion. He states he is feeling well without any concerns at this time. He is stable for discharge to follow-up with primary care provider and he needs outpatient sleep study because it could be related to untreated sleep apnea. He was also found to have a small pulmonary nodule that he is low risk for cancer given that he is not smoker, no known asbestos or radiation exposure to his chest. Will have arms primary care provider and consider repeat CT chest in 12 months for further monitoring. Told to continue using his incentive spirometer, monitoring his respiratory status and otherwise we have ruled out acute pneumonia and PE on the CTA today. He is stable from medical standpoint to be discharged home at this time. (2) S/P right rotator cuff repair: Code(s): Z98.890 - Other specified postprocedural states Status: Acute Assessment and Plan: Postop care per Dr. Ge. Pain control and DVT prop (3) BPH (benign prostatic hyperplasia): Code(s): N40.0 - Benign prostatic hyperplasia without lower urinary tract symptoms Status: Chronic Assessment and Plan: Patient had to be straight cath for urinary retention. Flomax was started. pt has history of bph. Continue taking his home medications and follow-up with primary care if there is any issues. (4) Apnea, sleep: Code(s): G47.30 - Sleep apnea, unspecified Status: Acute Assessment and Plan: Patient needs to get a sleep study done outpatient (5) GERD (gastroesophageal reflux disease): Code(s): K21.9 - Gastro-esophageal reflux disease without esophagitis Status: Chronic Assessment and Plan: Continue with his Nexium. (6) Obesity: Code(s): E66.9 - Obesity, unspecified Status: Acute Assessment and Plan: Adviced health lifestyle for weight loss Time Spent With Patient Time with patient: 25 - 35 minutes Subjective Date/time seen: 03/23/20 15:24 Interval history: Date of service 03/23/2020: He is resting comfortably on room air at this time and states he does not have any shortness of breath, cough, chest pain, pleuritic chest pain. He does have some anxiety about everything going on why still in the hospital. He denies much pain to his right shoulder since he is postop day 2. He denies any fevers, chills, nausea, vomiting, abdominal pain, constipation, diarrhea, leg swelling, calf pain any other symptoms at this time. Review of Systems Review of Systems: All systems reviewed & are unremarkable except as noted in HPI and below Exam Narrative: Exam Narrative: General: 59-year-old man sitting up in a chair talking with respiratory as a wean his oxygen. Appears anxious but otherwise comfortable and in no acute distress. Skin: No jaundice or cyanosis. Good skin turgor. Neck: Full range of motion. Supple. Respiratory: Lungs are clear to auscultation bilaterally. No wheezing, rales or rhonchi noted. No bony chest wall tenderne
--- NOTE | 2020-04-18 10:42 | PM.DS ---
DS: Admitting Diagnosis Admitting Diagnosis Admitting Diagnosis: Right Shouldler Rotator Cuff Tear DS: Discharge Diagnosis Discharge Diagnosis (1) S/P right rotator cuff repair: Code(s): Z98.890 - Other specified postprocedural states Status: Acute DS: Summary Time Spent with Patient Time attestation: Total time spent providing and/or coordinating discharge services: Discharge Plan Discharge Attending physician on discharge: Ravi Ge Consulting providers: Nahed Flores ; James Franklin Julie A. ; Ravi Ge ; Jason Rousseau ; Rohit Benites ; Gume Varghese Discharging Clinician: Ravi Ge Anticipated Discharge Date/Time: 03/23/20 16:16 Patient Disposition: Home, Self-Care Activity: other - see discharge instructions Diet: as tolerated Wound Care Instructions: change dressing daily Discharge Instructions: RAVI GE M.D. [facility], [place] [id number] POST OPERATIVE DISCHARGE INSTRUCTIONS FOLLOWING SHOULDER ARTHROSCOPY Your arthroscopic procedure was performed with special micro-instruments. Following your procedure, it is important that you read, understand, and carry out the following instructions. 1. Ice the shoulder frequently for 20minute intervals 3-4 times each day, particularly the first 3 days. The wounds should be kept clean and dry until they have sealed over. Two days following your arthroscopy, you can remove the dressing and cover the puncture wounds with band-aids. Do not get the wound wet. Change the band-aids every day. 3. Extremity/shoulder exercises as instructed per Physical Therapy. These include Active Assistive Range of Motion-hand, wrist, elbow and cane exercises twice a day. 4. Diet as tolerated. 5. Wear sling gray tender except for exercise. 6. Continue home medications as prescribed. You can resume your anti-inflammatory medication or take an [id number] non-steroidal anti-inflammatory medication, such as Advil, for the first month following surgery. If you take Advil, you can take 2 tablets every 8 hours. If this pain medicine does not provide adequate relief, please call your surgeon. 7. Do not drive or operate machinery for 24 hours due to the medication received. 8. Your follow-up appointment is in 1-2 weeks. Please call to confirm. 9. For problems during office hours call the above office number. When the office is closed, call the office and an emergency number will be given to you. 10. Additional instructions: Formulated: November 2004 Revised: 03/19 Nahed Flores PA-C Hospitalist You were admitted after your shoulder surgery after having a hard time coming off of oxygen. This could have been secondary to your un treated sleep apnea verses anesthesia. Initially we had been treating you for possible pneumonia but today we had a CT of your chest which showed no pneumonia, no acute blood clot and otherwise clear lungs. We were able to wean you off of oxygen today and you have been resting comfortably on room air without any issues. You need to follow-up with primary care within 1 week of discharge any need to have an outpatient sleep study scheduled for further evaluation. Make sure you are drinking plenty of fluids to stay hydrated cut your kidney function was slightly elevated but is return back to normal. I will have labs drawn in 1 week. Follow up with your Primary Care Provider within 1 week of discharge to further evaluate you on your recovery. Return to the ER if you have any new or worsening symptoms of chest pain, shortness of breath, fever, chills, abdominal pain, vomiting, diarrhea or any other concerning symptoms. Good luck with your recovery! _
== END 2020-03-23 17:45 | disposition home or self-care (01) | DRG 952 ==
LOC: ANHIMU 17:55 → ANHSURGERY 18:04 → ANHIMU 18:04 → ANH3MEDSUR 03-23 07:29 → ANHIMU 03-27 15:15
PROVIDERS: Nurse Practitioner; Orthopaedic Surgery; Admitting Provider Family Medicine; PCP Emergency Medicine; Visit Provider Family Medicine
PROC: 0LQ10ZZ Repair Right Shoulder Tendon, Open Approach (ICD-10-PCS; CPT 29805; principal; 2020-03-21 07:30)
DX: J95.89 Other postprocedural complications and disorders of respiratory system, not elsewhere classified (principal); R09.02 Hypoxemia; J98.11 Atelectasis; M75.101 Unspecified rotator cuff tear or rupture of right shoulder, not specified as traumatic; T41.295A Adverse effect of other general anesthetics, initial encounter; Z23 Encounter for immunization; G47.33 Obstructive sleep apnea (adult) (pediatric); E66.9 Obesity, unspecified; K21.9 Gastro-esophageal reflux disease without esophagitis; Z98.1 Arthrodesis status; Z68.35 Body mass index [BMI] 35.0-35.9, adult
CPT/HCPCS: 36415; 36600; 71045; 71275; 80048; 82805; 83735; 85025; 87040; 90471; 90686; 94640; A4565; A9270; G0008; J0330; J0690; J0696; J1100; J1885; J2250; J2270; J2370; J2405; J2704; J7120; Q9967